=== PATIENT | male | born 1950 | race Caucasian/White ===

== ENCOUNTER 2025-02-28 00:57 | Outpatient (CLI) | payer MEDICARE, SELFPAY | END 2025-02-28 00:58 | disposition home or self-care (01) | PROVIDERS: Visit Provider Radiology Radiation Oncology | DX: C61 Malignant neoplasm of prostate (principal) | CPT/HCPCS: 36415; 84153 ==

== ENCOUNTER 2025-06-16 03:54 | Outpatient (CLI) | payer MEDICARE, SELFPAY | END 2025-06-16 03:55 | disposition home or self-care (01) | PROVIDERS: Visit Provider Radiology Radiation Oncology | DX: C61 Malignant neoplasm of prostate (principal) | CPT/HCPCS: 36415; 84153; 84403 ==